=== PATIENT | female | born 1990 | race Caucasian/White ===

== ENCOUNTER 2019-07-20 10:24 | Emergency (ER) | payer MEDICAID, SELFPAY ==
[2019-07-20 10:40] VITALS: BP 105/66; PULSE 82; RESP 16; TEMP 36.7; O2SAT 100; BMI 18.8
--- NOTE | 2019-07-20 11:09 | DI.RAD.S_ITS ---
PROCEDURE: XR RIBS LT MIN 3V W CXR1V INDICATIONS: wresting last , now with left rib pain. TECHNIQUE: 2 views of the left ribs were acquired, along with a single view chest. COMPARISON: None. FINDINGS: Surgical changes and devices: None. Bones and chest wall: No displaced fractures or dislocations. No suspicious bony lesions. Overlying soft tissues appear unremarkable. Lungs and pleura: No pleural effusions or pneumothorax. Lungs appear clear. Mediastinum: Mediastinal contours appear normal. Heart size is normal. IMPRESSION: No displaced left rib fractures. Dictated by: Tavares Guevara M.D. on 07/20/2019 at 10:27 Approved by: Tavares Guevara M.D. on 07/20/2019 at 10:28
[2019-07-20] MEDS: LIDOCAINE PATCH 1 EACH ADH..PATCH TOP (11:49)
--- NOTE | 2019-07-20 12:02 | ED.URI ---
HPI - URI/Sore Throat <RADHA Feng - Last Filed: 07/20/19 14:29> General Chief Complaint: Upper Respiratory Symptoms Stated Complaint: Thinks cracked rib, pain on lft side and SOB Time Seen by Provider: 07/20/19 11:09 Source: patient Mode of arrival: ambulatory Limitations: no limitations History of Present Illness HPI Narrative: The patient is a 28-year-old female nonsmoker with history of depression and anxiety who presents with a chief complaint of left posterior pain. She states she was wrestling with her boyfriend in a playful manner, on . A she states that he pressed energy had sudden pain in her left posterior ribs. She states that now her sit take a deep breath or cough. She denies any fevers nausea vomiting or diarrhea. She states is difficult to take a deep breath, but denies any chest pain or shortness of breath. She has taken 400 mg of ibuprofen for the pain. Related Data Previous Rx's Medication Instructions Recorded sulfamethoxazole-trimethoprim 1 tab PO BID #12 tab 03/25/17 Allergies Allergy/AdvReac Type Severity Reaction Status Date / Time No Known Drug Allergies Allergy Verified 07/20/19 10:44 Review of Systems <RADHA Feng - Last Filed: 07/20/19 14:29> Review of Systems GENERAL: Denies chills, fatigue, malaise, fever, sweats. HEENT: Denies sinus pain, ear pain, sore throat, difficulty swallowing, dizziness. RESPIRATORY: See HPI CARDIOVASCULAR: Denies chest pain, palpitations, orthopnea, edema, GASTROINTESTINAL: Denies nausea, vomiting, abdominal pain, diarrhea, constipation, melena. : Denies dysuria, frequency, incontinence, hematuria, urinary retention. MUSCULOSKELETAL: denies weakness, joint pain, or bony pain SKIN: Denies rash, skin lesions, or other NEUROLOGIC: Denies weakness, headache, numbness, change in speech, confusion, seizures, incoordination. PSYCHIATRIC: No concerning psychosocial issues. 12 point review of systems is negative except for those stated above PFSH <RADHA Feng - Last Filed: 07/20/19 14:29> Medical History (Updated 07/20/19 @ 12:09 by RADHA Feng) Depression (Acute) Social History Smoking Status: Never smoker Social History Smoking Status: Never smoker Exam <RADHA Feng - Last Filed: 07/20/19 14:29> Narrative Exam Narrative: GENERAL: Thin female in no acute distress HEAD: Atraumatic. Normocephalic. No temporal or scalp tenderness. EYES: Pupils equal round and reactive. Extraocular motions intact. No scleral icterus. No injection or drainage. ENT: Nose without bleeding, purulent drainage or septal hematoma. Throat without erythema, tonsillar hypertrophy or exudate. Uvula midline. Airway patent. NECK: Trachea midline. No JVD or lymphadenopathy. Supple, nontender, no meningeal signs. CARDIOVASCULAR: Regular rate and rhythm RESPIRATORY: Clear to auscultation. Breath sounds equal bilaterally. No wheezes, rales, or rhonchi. No cough. No increased respiratory effort. Pain to palpation left posterior ribs. No pain on on lateral chest wall compression. Pain on anterior posterior chest wall compression. GASTROINTESTINAL: Abdomen soft, non-tender, nondistended. No hepato-splenomegaly, or palpable masses. No guarding. EXTREMITIES: No clubbing, cyanosis, or edema. No joint tenderness, effusion, or edema noted. BACK: Nontender without deformity or crepitance. No flank tenderness. NEURO: AOx3. SKIN: No rash, erythema, ecchymosis laceration abrasion or contusion noted on posterior chest wall Initial Vital Signs Initial Vital Signs: Vital Signs Temperature 98.0 F 07/20/19 10:40 Pulse Rate 82 07/20/19 10:40 Respiratory Rate 16 07/20/19 10:40 Blood Pressure 105/66 07/20/19 10:40 Pulse Oximetry 100 07/20/19 10:40 <Pat Aguilar DO - Last Filed: 07/21/19 07:23> Initial Vital Signs Initial Vital Signs: Vital Signs Temperature 98.0 F 07/20/19 10:40 Pulse Rate 82 07/20/19 10:40 Respiratory Rate 16 07/20/19 10:40 Blood Pressure 105/66 07/20/19 10:40 Pulse Oximetry 100 07/20/19 10:40 Course <RADHA Feng - Last Filed: 07/20/19 14:29> Orders Ordered: Discontinued Medications Lidocaine (Lidoderm) 1 each TOP NOW ONE Stop: 07/20/19 11:25 Last Admin: 07/20/19 11:49 Dose: 1 each Vital Signs - 8 hr 07/20/19 10:40 07/20/19 12:24 Temperature 98.0 F Pulse Rate 82 64 Respiratory Rate 16 14 Blood Pressure 105/66 Blood Pressure [Left Arm] 110/55 L Pulse Oximetry 100 100 <Pat Aguilar DO - Last Filed: 07/21/19 07:23> Orders Ordered: Discontinued Medications Lidocaine (Lidoderm) 1 each TOP NOW ONE Stop: 07/20/19 11:25 Last Admin: 07/20/19 11:49 Dose: 1 each Vital Signs - 8 hr 07/20/19 10:40 07/20/19 12:24 Temperature 98.0 F Pulse Rate 82 64 Respiratory Rate 16 14 Blood Pressure 105/66 Blood Pressure [Left Arm] 110/55 L Pulse Oximetry 100 100 MDM - URI/Sore Throat <RADHA Feng - Last Filed: 07/20/19 14:29> Imaging Data Ribs x-ray: Radiologist's impression: [place] [address] XRay Report Signed Patient: Isidra Tracy LMR#: [id number] : 1990Acct:[id number] Age/Sex: 28 / FDate of Service: 07/20/19 Loc: ED Accession Number: [id number] Procedure: XR ribs LT min 3V w CXR1V Ordering Provider: Pat Aguilar D.O. PROCEDURE: XR RIBS LT MIN 3V W CXR1V INDICATIONS: wresting last , now with left rib pain. TECHNIQUE: 2 views of the left ribs were acquired, along with a single view chest. COMPARISON: None. FINDINGS: Surgical changes and devices: None. Bones and chest wall: No displaced fractures or dislocations. No suspicious bony lesions. Overlying soft tissues appear unremarkable. Lungs and pleura: No pleural effusions or pneumothorax. Lungs appear clear. Mediastinum: Mediastinal contours appear normal. Heart size is normal. IMPRESSION: No displaced left rib fractures. Dictated by: Tavares Guevara M.D. on 07/20/2019 at 10:27 Approved by: Tavares Guevara M.D. on 07/20/2019 at 10:28 [facility] Narrative Medical decision making narrative: The patient is a 28-year-old female who presents with a chief complaint of left posterior rib pain. She has a negative x-ray. Her vital signs are stable, she is well oxygenated she is in no acute distress on exam. She is given a lidocaine patch to the emergency department. I offered her Toradol, which she declined. She was given incentive spirometry teaching due to a rib contusion. I discussed at length follow up with PCP. Discussed coming back to the ER for any acute concerns such as chest pain, severe shortness of breath etc. Patient has no questions or concerns upon discharge. I offered a prescription of lidocaine patch, and she declined. Discharge Plan Departure Patient Disposition: Home Clinical Impression: Contusion of rib on left side Qualifiers: Encounter type: initial encounter Qualified Code(s): S20.212A - Contusion of left front wall of thorax, initial encounter Discharge Date/Time: 07/20/19 12:29 Interventions: ED Discharge Assessment Last Done: 07/20/19 12:23 Instructions: How to Use an Incentive Spirometer, DI for Rib Contusion Activity Restrictions/Additional Instructions: Thank you for trusting us with your care today. Your x-ray today shows no fractures of your ribs. Please use the incentive spirometer to help prevent pneumonia. We have given you a lidocaine patch to help your pain. As discussed, 4% lidocaine patches are available [id number]. I also suggest continued use of ibuprofen and Tylenol. Please come back to the emergency department for any acute issues such as chest pain, shortness of breath, neurological changes, concern of heart attack or stroke. Prescriptions: No Action sulfamethoxazole-trimethoprim 800 MG/160 MG tablet 1 tab PO BID Qty: 12 RF: 0 Referrals: Grady Rowe MD [Primary Care Provider] - <Pat Aguilar DO - Last Filed: 07/21/19 07:23> Cosign ED Attending Nikkoature Attestation: I was immediately available in the department for consultation. Documentation has been reviewed. I agree with assessment and plan.
--- NOTE | 2019-07-20 12:09 | ED_ITS ---
HPI - URI/Sore Throat <RADHA Feng - Last Filed: 07/20/19 14:29> General Chief Complaint: Upper Respiratory Symptoms Stated Complaint: Thinks cracked rib, pain on lft side and SOB Time Seen by Provider: 07/20/19 11:09 Source: patient Mode of arrival: ambulatory Limitations: no limitations History of Present Illness HPI Narrative: The patient is a 28-year-old female nonsmoker with history of depression and anxiety who presents with a chief complaint of left posterior pain. She states she was wrestling with her boyfriend in a playful manner, on . A she states that he pressed energy had sudden pain in her left posterior ribs. She states that now her sit take a deep breath or cough. She denies any fevers nausea vomiting or diarrhea. She states is difficult to take a deep breath, but denies any chest pain or shortness of breath. She has taken 400 mg of ibuprofen for the pain. Related Data Previous Rx's Medication Instructions Recorded sulfamethoxazole-trimethoprim 1 tab PO BID #12 tab 03/25/17 Allergies Allergy/AdvReac Type Severity Reaction Status Date / Time No Known Drug Allergies Allergy Verified 07/20/19 10:44 Review of Systems <RADHA Feng - Last Filed: 07/20/19 14:29> Review of Systems GENERAL: Denies chills, fatigue, malaise, fever, sweats. HEENT: Denies sinus pain, ear pain, sore throat, difficulty swallowing, dizziness. RESPIRATORY: See HPI CARDIOVASCULAR: Denies chest pain, palpitations, orthopnea, edema, GASTROINTESTINAL: Denies nausea, vomiting, abdominal pain, diarrhea, constipation, melena. : Denies dysuria, frequency, incontinence, hematuria, urinary retention. MUSCULOSKELETAL: denies weakness, joint pain, or bony pain SKIN: Denies rash, skin lesions, or other NEUROLOGIC: Denies weakness, headache, numbness, change in speech, confusion, seizures, incoordination. PSYCHIATRIC: No concerning psychosocial issues. 12 point review of systems is negative except for those stated above PFSH <RADHA Feng - Last Filed: 07/20/19 14:29> Medical History (Updated 07/20/19 @ 12:09 by RADHA Feng) Depression (Acute) Social History Smoking Status: Never smoker Social History Smoking Status: Never smoker Exam <RADHA Feng - Last Filed: 07/20/19 14:29> Narrative Exam Narrative: GENERAL: Thin female in no acute distress HEAD: Atraumatic. Normocephalic. No temporal or scalp tenderness. EYES: Pupils equal round and reactive. Extraocular motions intact. No scleral icterus. No injection or drainage. ENT: Nose without bleeding, purulent drainage or septal hematoma. Throat without erythema, tonsillar hypertrophy or exudate. Uvula midline. Airway patent. NECK: Trachea midline. No JVD or lymphadenopathy. Supple, nontender, no meningeal signs. CARDIOVASCULAR: Regular rate and rhythm RESPIRATORY: Clear to auscultation. Breath sounds equal bilaterally. No wheezes, rales, or rhonchi. No cough. No increased respiratory effort. Pain to palpation left posterior ribs. No pain on on lateral chest wall compression. Pain on anterior posterior chest wall compression. GASTROINTESTINAL: Abdomen soft, non-tender, nondistended. No hepato- splenomegaly, or palpable masses. No guarding. EXTREMITIES: No clubbing, cyanosis, or edema. No joint tenderness, effusion, or edema noted. BACK: Nontender without deformity or crepitance. No flank tenderness. NEURO: AOx3. SKIN: No rash, erythema, ecchymosis laceration abrasion or contusion noted on posterior chest wall Initial Vital Signs Initial Vital Signs: Vital Signs Temperature 98.0 F 07/20/19 10:40 Pulse Rate 82 07/20/19 10:40 Respiratory Rate 16 07/20/19 10:40 Blood Pressure 105/66 07/20/19 10:40 Pulse Oximetry 100 07/20/19 10:40 <Pat Aguilar DO - Last Filed: 07/21/19 07:23> Initial Vital Signs Initial Vital Signs: Vital Signs Temperature 98.0 F 07/20/19 10:40 Pulse Rate 82 07/20/19 10:40 Respiratory Rate 16 07/20/19 10:40 Blood Pressure 105/66 07/20/19 10:40 Pulse Oximetry 100 07/20/19 10:40 Course <RADHA Fneg - Last Filed: 07/20/19 14:29> Orders Ordered: Discontinued Medications Lidocaine (Lidoderm) 1 each TOP NOW ONE Stop: 07/20/19 11:25 Last Admin: 07/20/19 11:49 Dose: 1 each Vital Signs - 8 hr 07/20/19 10:40 07/20/19 12:24 Temperature 98.0 F Pulse Rate 82 64 Respiratory Rate 16 14 Blood Pressure 105/66 Blood Pressure [Left Arm] 110/55 L Pulse Oximetry 100 100 <Pat Aguilar DO - Last Filed: 07/21/19 07:23> Orders Ordered: Discontinued Medications Lidocaine (Lidoderm) 1 each TOP NOW ONE Stop: 07/20/19 11:25 Last Admin: 07/20/19 11:49 Dose: 1 each Vital Signs - 8 hr 07/20/19 10:40 07/20/19 12:24 Temperature 98.0 F Pulse Rate 82 64 Respiratory Rate 16 14 Blood Pressure 105/66 Blood Pressure [Left Arm] 110/55 L Pulse Oximetry 100 100 MDM - URI/Sore Throat <RADHA Feng - Last Filed: 07/20/19 14:29> Imaging Data Ribs x-ray: Radiologist's impression: [place] [address] XRay Report Signed Patient: Isidra Tracy LMR#: [id number] : 1990Acct:[id number] Age/Sex: 28 / FDate of Service: 07/20/19 Loc: ED Accession Number: [id number] Procedure: XR ribs LT min 3V w CXR1V Ordering Provider: Pat Aguilar D.O. PROCEDURE: XR RIBS LT MIN 3V W CXR1V INDICATIONS: wresting last , now with left rib pain. TECHNIQUE: 2 views of the left ribs were acquired, along with a single view chest. COMPARISON: None. FINDINGS: Surgical changes and devices: None. Bones and chest wall: No displaced fractures or dislocations. No suspicious bony lesions. Overlying soft tissues appear unremarkable. Lungs and pleura: No pleural effusions or pneumothorax. Lungs appear clear. Mediastinum: Mediastinal contours appear normal. Heart size is normal. IMPRESSION: No displaced left rib fractures. Dictated by: Tavares Guevara M.D. on 07/20/2019 at 10:27 Approved by: Tavares Guevara M.D. on 07/20/2019 at 10:28 [facility] Narrative Medical decision making narrative: The patient is a 28-year-old female who presents with a chief complaint of left posterior rib pain. She has a negative x-ray. Her vital signs are stable, she is well oxygenated she is in no acute distress on exam. She is given a lidocaine patch to the emergency department. I offered her Toradol, which she declined. She was given incentive spirometry teaching due to a rib contusion. I discussed at length follow up with PCP. Discussed coming back to the ER for any acute concerns such as chest pain, severe shortness of breath etc. Patient has no questions or concerns upon discharge. I offered a prescription of lidocaine patch, and she declined. Discharge Plan Departure Patient Disposition: Home Clinical Impression: Contusion of rib on left side Qualifiers: Encounter type: initial encounter Qualified Code(s): S20.212A - Contusion of left front wall of thorax, initial encounter Discharge Date/Time: 07/20/19 12:29 Interventions: ED Discharge Assessment Last Done: 07/20/19 12:23 Instructions: How to Use an Incentive Spirometer, DI for Rib Contusion Activity Restrictions/Additional Instructions: Thank you for trusting us with your care today. Your x-ray today shows no fractures of your ribs. Please use the incentive spirometer to help prevent pneumonia. We have given you a lidocaine patch to help your pain. As discussed, 4% lidocaine patches are available [id number]. I also suggest continued use of ibuprofen and Tylenol. Please come back to the emergency department for any acute issues such as chest pain, shortness of breath, neurological changes, concern of heart attack or stroke. Prescriptions: No Action sulfamethoxazole-trimethoprim 800 MG/160 MG tablet 1 tab PO BID Qty: 12 RF: 0 Referrals: Grady Rowe MD [Primary Care Provider] - <Pat Aguilar DO - Last Filed: 07/21/19 07:23> Cosign ED Attending Nikkoature Attestation: I was immediately available in the department for consultation. Documentation has been reviewed. I agree with assessment and plan.
[2019-07-20 12:24] VITALS: BP 110/55; PULSE 64; RESP 14; O2SAT 100
== END 2019-07-20 12:29 | disposition home or self-care (01) ==
PROVIDERS: Emergency Provider Nurse Practitioner Family; PCP Family Medicine
DX: S20.212A Contusion of left front wall of thorax, initial encounter (principal)
CPT/HCPCS: 71101; 99282; 99283

== ENCOUNTER → 2021-05-25 14:53 | Outpatient (CLI) | payer OTHER, MEDICAID, SELFPAY ==
[2021-05-25 15:38] LABS: COVID19 -Nasal RAPID Negative (Negative)
== END ==
PROVIDERS: Visit Provider Physician Assistant
DX: Z20.822 Contact with and (suspected) exposure to COVID-19 (principal)
CPT/HCPCS: 87635

== ENCOUNTER → 2021-09-14 09:49 | Outpatient (CLI) | payer OTHER, MEDICAID, SELFPAY ==
[2021-09-14 10:17] LABS: COVID19 -Nasal RAPID Negative (Negative)
[2021-09-14 11:22] LABS: Influenza A - CEPHEID Flu A NEGATIVE (NEGATIVE); Influenza B - CEPHEID Flu B NEGATIVE (NEGATIVE)
== END ==
PROVIDERS: Referring Provider Nurse Practitioner Family; Visit Provider Nurse Practitioner Family
DX: Z20.822 Contact with and (suspected) exposure to COVID-19 (principal); R06.02 Shortness of breath; R11.10 Vomiting, unspecified; R50.9 Fever, unspecified
CPT/HCPCS: 87502; 87635

== ENCOUNTER → 2022-02-10 13:48 | Outpatient (CLI) | payer OTHER, MEDICAID, SELFPAY ==
[2022-02-10 15:01] LABS: Alanine Aminotransferase 20 IU/L (<35); Albumin 4.5 g/dL (3.5-5.0); Albumin Globulin Ratio 1.4 (1.0-2.8); Alkaline Phosphatase 71 U/L (38-126); Aspartate Aminotransferase 24 IU/L (14-36); Bilirubin Total 0.3 mg/dL (0.2-1.3); Blood Urea Nitrogen 15 mg/dL (7-17); Calcium 9.4 mg/dL (8.4-10.2); Carbon Dioxide 30 mmol/L (22-32); Chloride 103 mmol/L (98-107); Estimated Glomerular Filt Rate > 60.0 mL/min (>60); Globulin 3.2 g/dL (1.7-4.1); Glucose 71 mg/dL (70-100); HEMOLYSIS < 15 (0-50); Potassium 4.2 mmol/L (3.4-5.1); Sodium 141 mmol/L (137-145); Total Protein 7.7 g/dL (6.3-8.2)
[2022-02-10 16:40] LABS: TSH w/ Reflex to FT4 1.87 uIU/mL (0.47-4.68)
== END ==
PROVIDERS: PCP Family Medicine; Referring Provider Family Medicine; Visit Provider Family Medicine
DX: F41.8 Other specified anxiety disorders (principal); R79.89 Other specified abnormal findings of blood chemistry
CPT/HCPCS: 36415; 80053; 84443

== ENCOUNTER 2022-10-09 08:44 | Emergency (ER) | payer OTHER, MEDICAID, SELFPAY ==
--- NOTE | 2022-10-09 09:06 | ED_ITS ---
HPI - General Adult General Chief complaint: Abdominal Pain Stated complaint: apendix worries Time Seen by Provider: 10/09/22 08:53 History of Present Illness HPI narrative: Otherwise healthy 32-year-old woman presents with concerns for appendicitis. She was seen in urgent care on the , diagnosed with a urinary tract infection but the provider she saw was also concerned that she had some right lower quadrant tenderness and might be developing appendicitis. A year ago she had a ruptured ovarian cyst. She is not currently on control. She states that yesterday she had continued significant right lower quadrant tenderness after starting the Augmentin prescribed in urgent care. The dysuria and urine symptoms have completely resolved. She never did have fevers or flank pain. She woke up this morning and is pain-free but still somewhat concerned regarding the discussion around appendicitis. She describes no fevers, cough, chest pain, palpitations, headaches, vomiting or diarrhea. Related Data Home Medications Medication Instructions Recorded Confirmed bupropion HCl 150 mg tablet,12 hr 150 mg PO DAILY 01/27/22 01/27/22 sustained-release (Wellbutrin SR) Allergies Allergy/AdvReac Type Severity Reaction Status Date / Time No Known Drug Allergies Allergy Verified 10/09/22 09:12 Review of Systems Review of Systems Narrative: Remainder of complete review of systems is otherwise unremarkable except for that included in the HPI. Patient History Medical History (Updated 10/09/22 @ 10:12 by Maday Marti MD) Anemia (~2016) Anxiety (~2014) Asthma (~1988) Chicken pox (~1996) Depression GI bleeding (~2008) Ovarian cyst (~2019) Family History (Updated 12/16/21 @ 18:47 by Agnieszka Baker) Grandfather Parkinson's disease Grandmother Breast cancer Grandfather Prostate cancer Grandmother Breast cancer Social History Smoking Status: Never smoker Smoking Status: Never smoker Substance Use Type: does not use Exam Initial Vital Signs Initial Vital Signs: Vital Signs Temperature 98.6 F 10/09/22 09:09 Pulse Rate 84 10/09/22 09:09 Respiratory Rate 16 10/09/22 09:09 Blood Pressure 119/66 10/09/22 09:09 Pulse Oximetry 100 10/09/22 09:09 Oxygen Delivery Method 10/09/22 09:09 General: Healthy appearing, in no acute distress. Able to give a complete and coherent history. Well-nourished well-developed HEENT: Moist mucous membranes, normal sclera with reactive pupils, Neck: , supple Respiratory: Lungs are clear to auscultation, no wheezing no rales no rhonchi. Full and symmetrical air movement Cardiac: Regular rate and rhythm no murmurs no bruits Abdomen: Soft, very mild suprapubic to right lower quadrant tenderness without rebound or guarding, good bowel tones, no flank pain Skin: Warm and dry, no rashes Neurologic: Grossly neurologically intact with no obvious asymmetries or abnormalities Extremities: No trauma, well perfused Psych: Cooperative, appropriate insight and affect Course Orders Ordered: ED Orders 10/09/22 09:16 Complete Blood Count AUTO DIFF Stat Comprehensive Metabolic Panel Stat Vital Signs Vital signs: Vital Signs - 8 hr 10/09/22 09:09 Temperature 98.6 F Pulse Rate 84 Respiratory Rate 16 Blood Pressure 119/66 Pulse Oximetry 100 Oxygen Delivery Method Room Air Medical Decision Making Lab Data Result diagrams: 10/09/22 09:16 10/09/22 09:16 Labs: Lab Results 10/09/22 10/09/22 Range/Units 09:16 09:16 WBC 6.1 (4.5-11.0) X10^3/uL RBC 4.36 (4.0-5.2) X10^6/uL Hgb 12.9 (12.0-16.0) g/dL Hct 38.0 (36-46) % MCV 87.3 (80-100) fL MCH 29.5 (26-34) PG MCHC 33.8 (30-36) % RDW 12.7 (11.6-14.8) % Plt Count 378 (150-400) X10^3/uL Neut % (Auto) 62.3 (50-75) % Lymph % (Auto) 26.1 (25-40) % [place] % (Auto) 6.6 (3-14) % Eos % (Auto) 4.5 H (2-4) % Baso % (Auto) 0.5 (0-2) % Neut # (Auto) 3800 (3681-0909) /uL Lymph # (Auto) 1600 (0599-1709) /uL Dawson # (Auto) 400 (0-900) /uL Eos # (Auto) 300 (0-450) /uL Baso # (Auto) 0 (0-100) /uL Sodium 140 (137-145) mmol/L Potassium 3.6 (3.4-5.1) mmol/L Chloride 102 (98-107) mmol/L Carbon Dioxide 28 (22-32) mmol/L BUN 14 (7-17) mg/dL Creatinine 0.83 (0.52-1.04) mg/dL Estimated GFR > 60 (>60) mL/min BUN/Creatinine Ratio 16.9 (6-22) Glucose 82 (70-100) mg/dL Calcium 9.0 (8.4-10.2) mg/dL Total Bilirubin 0.3 (0.2-1.3) mg/dL AST 20 (14-36) IU/L ALT 18 (<35) IU/L Alkaline Phosphatase 60 (38-126) U/L Total Protein 7.8 (6.3-8.2) g/dL Albumin 4.3 (3.5-5.0) g/dL Globulin 3.5 (1.7-4.1) g/dL Albumin/Globulin Ratio 1.2 (1.0-2.8) Point of Care Testing Test Results Negative Urine Dip Bedside Urine Glucose Negative Bedside Urine Bilirubin - Negative Bedside Urine Ketone - Negative Urine Specific [place] 1.005 Bedside Urine Occult Blood - Negative Bedside Urine pH 6.5 Bedside Urine Protein - Negative Bedside Urine Urobilinogen - Negative Bedside Urine Nitrite - Negative Bedside Urine Leukocytes - Negative Esterase Point of care testing: Point of Care Testing Test Results Negative Urine Dip Bedside Urine Glucose Negative Bedside Urine Bilirubin - Negative Bedside Urine Ketone - Negative Urine Specific [place] 1.005 Bedside Urine Occult Blood - Negative Bedside Urine pH 6.5 Bedside Urine Protein - Negative Bedside Urine Urobilinogen - Negative Bedside Urine Nitrite - Negative Bedside Urine Leukocytes - Negative Esterase [facility] Narrative Medical decision making narrative: 32-year-old woman who had moderate urinary tract symptoms along with mild right lower quadrant tenderness for the past 48 hours has been on Augmentin now for 3 doses and is feeling significantly better this morning. Labs are reassuring. Clinical exam does not suggest a developing or worsening appendicitis. Possibility of a ruptured ovarian cyst is discussed with patient. If it has ruptured, it has completely resolved and she is showing no signs of intraperitoneal bleeding. At this point I recommended that she complete the entire 10 day course of amoxicillin with the presumption that she was developing an appendicitis and is being appropriately medically managed for such. Her urine has cleared. Findings reviewed, questions are answered and she is safe for home discharge Discharge Plan Departure Patient Disposition: Home Clinical Impression: UTI (urinary tract infection) Qualifiers: Urinary tract infection type: acute cystitis Hematuria presence: without hematuria Qualified Code(s): N30.00 - Acute cystitis without hematuria Abdominal right lower quadrant tenderness Qualifiers: Presence of rebound: absent Qualified Code(s): R10.813 - Right lower quadrant abdominal tenderness Instructions: DI for Appendicitis -- Adult Activity Restrictions/Additional Instructions: Thank you for coming in today Your lab work was very reassuring. There is no evidence of infection, kidney abnormalities or acute blood loss. Your clinical exam is equally reassuring. The fact that the right lower quadrant tenderness is essentially gone this morning is assigned that the Augmentin is helping. At this point I do not think that you have acute surgical appendicitis that needs additional workup or admission to the hospital. It may be that there was an early developing infection and the antibiotics chosen is entirely appropriate. Please make sure you complete course. Your urine is clear today, the antibiotics are working. If you find that you are getting worse or develop any new symptoms, please feel free to return to the emergency department for further evaluation. Prescriptions: No Action bupropion HCl [Wellbutrin SR] 150 mg tablet sustained-release 12 hr 150 mg PO DAILY Referrals: Raji Smalls MD [Primary Care Provider] -
[2022-10-09 09:09] VITALS: BP 119/66; PULSE 84; RESP 16; TEMP 37; O2SAT 100; BMI 19.5
[2022-10-09 09:27] LABS: Add Manual Diff / Slide Review NO; Basophils Absolute Auto 0 /uL (0-100); Basophils Percent Auto 0.5 % (0-2); Eosinophils Absolute Auto 300 /uL (0-450); Eosinophils Percent Auto 4.5 % (2-4); Hemoglobin 12.9 g/dL (12.0-16.0); Lymphocytes Absolute Auto 1600 /uL (1100-4500); Lymphocytes Percent Auto 26.1 % (25-40); Mean Corpuscular HGB Conc 33.8 % (30-36); Mean Corpuscular Hemoglobin 29.5 PG (26-34); Mean Corpuscular Volume 87.3 fL (80-100); Monocytes Absolute Auto 400 /uL (0-900); Monocytes Percent Auto 6.6 % (3-14); Neutrophils Absolute Auto 3800 /uL (1500-7000); Neutrophils Percent Auto 62.3 % (50-75); Platelet Count 378 X10^3/uL (150-400); Red Blood Cell Count 4.36 X10^6/uL (4.0-5.2); Red Cell Distribution Width 12.7 % (11.6-14.8); White Blood Cell Count 6.1 X10^3/uL (4.5-11.0)
[2022-10-09 09:36] LABS: Alanine Aminotransferase 18 IU/L (<35); Albumin 4.3 g/dL (3.5-5.0); Albumin Globulin Ratio 1.2 (1.0-2.8); Alkaline Phosphatase 60 U/L (38-126); Aspartate Aminotransferase 20 IU/L (14-36); BUN Creatinine Ratio 16.9 (6-22); Bilirubin Total 0.3 mg/dL (0.2-1.3); Blood Urea Nitrogen 14 mg/dL (7-17); Carbon Dioxide 28 mmol/L (22-32); Chloride 102 mmol/L (98-107); Estimated Glomerular Filt Rate > 60 mL/min (>60); Globulin 3.5 g/dL (1.7-4.1); Glucose 82 mg/dL (70-100); HEMOLYSIS < 15 (0-50); Potassium 3.6 mmol/L (3.4-5.1); Sodium 140 mmol/L (137-145); Total Protein 7.8 g/dL (6.3-8.2)
[2022-10-09 10:18] VITALS: BP 116/72; PULSE 76; RESP 12; O2SAT 98
== END 2022-10-09 10:18 | disposition home or self-care (01) ==
PROVIDERS: Emergency Provider Emergency Medicine; PCP Family Medicine
DX: N30.00 Acute cystitis without hematuria (principal); R10.813 Right lower quadrant abdominal tenderness
CPT/HCPCS: 36415; 80053; 81003; 81025; 85025; 99283

== ENCOUNTER → 2022-11-30 13:34 | Outpatient (CLI) | payer OTHER, MEDICAID, SELFPAY | PROVIDERS: PCP Family Medicine; Referring Provider Internal Medicine; Visit Provider Internal Medicine | DX: Z23 Encounter for immunization (principal) | CPT/HCPCS: 90471; 90686 ==

== ENCOUNTER → 2023-02-14 10:23 | Outpatient (CLI) | payer OTHER, MEDICAID, SELFPAY ==
[2023-02-14 11:46] LABS: Appearance Urine UA CLEAR; Bilirubin Urine UA NEGATIVE (NEGATIVE); Color Urine UA YELLOW; Glucose Urine UA NEGATIVE (Negative); Ketones Urine UA NEGATIVE (NEGATIVE); Leukocyte Esterase Urine UA NEGATIVE (NEGATIVE); Nitrite Urine UA NEGATIVE (Negative); Occult Blood Urine UA TRACE-INTACT (Negative); Protein Urine UA NEGATIVE (Negative); Urobilinogen Urine UA 0.2 E.U./dL (0.2)
[2023-02-14 11:50] LABS: Bacteria Urine None Seen; Culture Indicated Urine Cult Not Indicated; RBC Urine None Seen (0-5/HPF); Urine Comments Microscopic Normal; WBC Urine None Seen (0-5/HPF)
[2023-02-14 11:57] LABS: Alanine Aminotransferase 21 IU/L (<35); Albumin 4.1 g/dL (3.5-5.0); Albumin Globulin Ratio 1.3 (1.0-2.8); Alkaline Phosphatase 69 U/L (38-126); Aspartate Aminotransferase 21 IU/L (14-36); BUN Creatinine Ratio 19.3 (6-22); Bilirubin Total 0.4 mg/dL (0.2-1.3); Blood Urea Nitrogen 17 mg/dL (7-17); Calcium 8.5 mg/dL (8.4-10.2); Carbon Dioxide 31 mmol/L (22-32); Chloride 102 mmol/L (98-107); Estimated Glomerular Filt Rate > 60 mL/min (>60); Globulin 3.1 g/dL (1.7-4.1); Glucose 63 mg/dL (70-100); HEMOLYSIS < 15 (0-50); Potassium 4.4 mmol/L (3.4-5.1); Sodium 139 mmol/L (137-145); Total Protein 7.2 g/dL (6.3-8.2)
[2023-02-14 12:28] LABS: TSH w/ Reflex to FT4 1.47 uIU/mL (0.47-4.68)
== END ==
PROVIDERS: PCP Family Medicine; Referring Provider Family Medicine; Visit Provider Family Medicine
DX: F41.8 Other specified anxiety disorders (principal); F41.9 Anxiety disorder, unspecified; N39.41 Urge incontinence
CPT/HCPCS: 36415; 80053; 81001; 84443

== ENCOUNTER → 2023-06-01 09:43 | Outpatient (CLI) | payer OTHER, SELFPAY ==
[2023-06-01 10:22] LABS: COVID19 -Nasal RAPID Negative (Negative)
== END ==
PROVIDERS: PCP Family Medicine; Visit Provider Family Medicine
DX: Z20.822 Contact with and (suspected) exposure to COVID-19 (principal)
CPT/HCPCS: 87635

== ENCOUNTER → 2023-06-06 14:35 | Outpatient (CLI) | payer OTHER, SELFPAY ==
[2023-06-06 16:15] LABS: TSH w/ Reflex to FT4 1.82 uIU/mL (0.47-4.68)
[2023-06-09 12:47] LABS: Estrogen 191 pg/mL (.)
[2023-06-10 12:29] LABS: Anti Mullerian Hormone 1.92 ng/mL (.)
[2023-06-12 03:07] LABS: Percent Free Testosterone 1.29 % (0.50-2.80); Testosterone Free 0.13 ng/dL (0.10-0.85); Testosterone Total 10.1 ng/dL (10.0-55.0)
== END ==
PROVIDERS: PCP Family Medicine; Referring Provider Family Medicine; Visit Provider Family Medicine
DX: N83.209 Unspecified ovarian cyst, unspecified side (principal); F50.02 Anorexia nervosa, binge eating/purging type; Z31.41 Encounter for fertility testing
CPT/HCPCS: 36415; 82397; 82672; 83001; 84402; 84403; 84443

== ENCOUNTER → 2023-10-16 17:02 | Outpatient (CLI) | payer OTHER, SELFPAY ==
--- NOTE | 2023-10-16 17:03 | DI.US.S_ITS ---
PROCEDURE: US OB <= 14 WEEKS FETUS INDICATIONS: Dating and viability OUTSIDE/PRIOR DATING DATA: Last menstrual period (LMP): 08/16/2023. LMP-based estimated date of delivery (ZOE): 05/24/2024. First dating scan (date and location): 10/16/2023. Estimated date of delivery (ZOE) from first dating scan: 05/22/2024. TECHNIQUE: Real-time scanning was performed of the fetus and maternal pelvic organs, with image documentation. Transabdominal only. COMPARISON: None. FINDINGS: Embryo: [place]-rump length measuring 1.9 cm, gestational age 8 weeks 3 days Heart rate: 169 bpm. No perigestational hemorrhage. A yolk sac is seen. Maternal organs: Ovaries are within normal limits. Cervix measures 3.6 cm in length. IMPRESSION: 1. [place] living intrauterine at 8 weeks 3 days based on today's crown rump length. 2. No perigestational hemorrhage. We strive to produce accurate, complete, and clear reports of imaging services. To assist us in improving patient care, this report was composed using standard report templates and voice recognition software. Therefore, it may contain abnormal punctuation, insertions and/or omissions. Occasional wrong-word or sound-alike substitutions may occur. Though we review the report and make efforts to correct it, we do recommend that the report be read carefully in proper context to recognize any text inaccuracies. Dictated by: Chaparro Espitia M.D. on 10/17/2023 at 9:29 Approved by: Chaparro Espitia M.D. on 10/17/2023 at 9:32
== END ==
PROVIDERS: PCP Family Medicine; Referring Provider Obstetrics & Gynecology; Visit Provider Obstetrics & Gynecology
DX: Z34.81 Encounter for supervision of other normal pregnancy, first trimester (principal); Z3A.08 8 weeks gestation of pregnancy
CPT/HCPCS: 76801

== ENCOUNTER → 2023-11-15 14:28 | Outpatient (CLI) | payer OTHER, MEDICAID, SELFPAY ==
[2023-11-15 15:03] LABS: Add Manual Diff / Slide Review NO; Basophils Absolute Auto 0 /uL (0-100); Basophils Percent Auto 0.3 % (0-2); Eosinophils Absolute Auto 400 /uL (0-450); Eosinophils Percent Auto 4.9 % (2-4); Hematocrit 36.1 % (36-46); Hemoglobin 12.5 g/dL (12.0-16.0); Lymphocytes Absolute Auto 900 /uL (1100-4500); Lymphocytes Percent Auto 10.7 % (25-40); Mean Corpuscular HGB Conc 34.5 % (30-36); Mean Corpuscular Hemoglobin 29.9 PG (26-34); Mean Corpuscular Volume 86.7 fL (80-100); Monocytes Absolute Auto 900 /uL (0-900); Monocytes Percent Auto 11.1 % (3-14); Neutrophils Absolute Auto 6000 /uL (1500-7000); Platelet Count 343 X10^3/uL (150-400); Red Blood Cell Count 4.17 X10^6/uL (4.0-5.2); Red Cell Distribution Width 13.6 % (11.6-14.8); White Blood Cell Count 8.3 X10^3/uL (4.5-11.0)
[2023-11-15 16:15] LABS: Hepatitis B Surface Antigen NEGATIVE s/c (NEGATIVE); Rubella Antibody IgG 6.7 IU/mL (>15)
[2023-11-15 16:32] LABS: HIV 1 & 2 Ab/Ag 4th Gen Combo NEGATIVE (NEGATIVE); Hep C Virus Ab w/Reflex Quant NEGATIVE s/c (NEGATIVE)
[2023-11-15 22:49] LABS: Urine N gonorrhoeae NOT DETECTED
[2023-11-15 22:50] LABS: Urine Chlamydia NOT DETECTED
[2023-11-17 03:34] LABS: RPR Screen Non Reactive (Non Reactive)
[2023-11-17 07:36] LABS: Varicella IgG Antibody 701 index (Immune >165)
== END ==
PROVIDERS: PCP Family Medicine; Referring Provider Obstetrics & Gynecology; Visit Provider Obstetrics & Gynecology
DX: Z34.80 Encounter for supervision of other normal pregnancy, unspecified trimester (principal); Z34.81 Encounter for supervision of other normal pregnancy, first trimester; Z3A.13 13 weeks gestation of pregnancy
CPT/HCPCS: 36415; 80055; 86787; 86803; 86850; 86900; 86901; 87077; 87086; 87186; 87389; 87491; 87591

== ENCOUNTER 2023-11-17 22:06 | Emergency (ER) | payer OTHER, MEDICAID, SELFPAY ==
[2023-11-17 22:21] VITALS: BP 107/53; PULSE 109; RESP 18; TEMP 38.5; O2SAT 98; BMI 20.3
--- NOTE | 2023-11-17 22:28 | DI.RAD.S_ITS ---
PROCEDURE: XR CHEST 1V INDICATIONS: suspected sepsis TECHNIQUE: One view of the chest was acquired. COMPARISON: None. FINDINGS: Surgical changes and devices: None. Lungs and pleura: Lungs are clear. No pleural effusions or pneumothorax. Mediastinum: Mediastinal contours appear normal. Heart size is normal. Bones and chest wall: No suspicious bony lesions. Overlying soft tissues appear unremarkable. IMPRESSION: No acute pulmonary process. Dictated by: Janette Hook M.D. on 11/17/2023 at 23:20 Approved by: Janette Hook M.D. on 11/17/2023 at 23:20
[2023-11-17 22:53] LABS: INR 1.1 (0.9-1.3); Prothrombin Time 12.9 SECONDS (9.4-12.5)
[2023-11-17 22:55] LABS: Hematocrit 36.6 % (36-46); Hemoglobin 12.4 g/dL (12.0-16.0); Mean Corpuscular Volume 85.3 fL (80-100); Platelet Count 312 X10^3/uL (150-400); Red Blood Cell Count 4.29 X10^6/uL (4.0-5.2); Red Cell Distribution Width 13.5 % (11.6-14.8); White Blood Cell Count 27.4 X10^3/uL (4.5-11.0)
[2023-11-17 22:56] LABS: Add Manual Diff / Slide Review YES; PTT Partial Thromboplastin Tim 27 SECONDS (25.1-36.5)
[2023-11-17 23:01] LABS: Alanine Aminotransferase 16 IU/L (<35); Albumin 3.7 g/dL (3.5-5.0); Albumin Globulin Ratio 1.2 (1.0-2.8); Alkaline Phosphatase 48 U/L (38-126); Aspartate Aminotransferase 21 IU/L (14-36); BUN Creatinine Ratio 10.5 (6-22); Bilirubin Total 0.7 mg/dL (0.2-1.3); Blood Urea Nitrogen 9 mg/dL (7-17); Calcium 8.8 mg/dL (8.4-10.2); Carbon Dioxide 21 mmol/L (22-32); Chloride 99 mmol/L (98-107); Estimated Glomerular Filt Rate > 60 mL/min (>60); Globulin 3.2 g/dL (1.7-4.1); Glucose 138 mg/dL (70-100); HEMOLYSIS < 15 (0-50); Lipase 85 U/L (23-300); Potassium 3.5 mmol/L (3.4-5.1); Sodium 129 mmol/L (137-145); Total Protein 6.9 g/dL (6.3-8.2)
[2023-11-17 23:06] LABS: Lactate (Lactic Acid) 1.6 mmol/L (0.7-2.1)
[2023-11-17 23:17] LABS: Procalcitonin 0.34 ng/mL (<0.5)
[2023-11-17 23:18] LABS: Neutrophils Absolute Manual 24934 /uL (3000-5900); RBC Morphology Normal Morphology; Total Cells Counted 100
[2023-11-17] MEDS: SODIUM CHLORIDE 0.9% 1,000 ML 1000 ML IV (23:34)
[2023-11-18 00:29] LABS: Bacteria Urine Many (>30); Culture Indicated Urine Specimen Cultured; RBC Urine 1-5/HPF (0-5/HPF); Squamous Epithelial Cell Urine None Seen (0-5/HPF); WBC Urine 30-100/HPF (0-5/HPF)
--- NOTE | 2023-11-18 02:21 | ED_ITS ---
HPI - Fever General Chief Complaint: Fever Stated Complaint: high fever body aches 2nd trimester of Time Seen by Provider: 11/18/23 02:06 Source: patient Mode of arrival: Ambulatory History of Present Illness HPI Narrative: This is a 33-year-old female who otherwise healthy at 13 weeks. She is had 24 hours of fevers myalgias fatigue and cough. She is had nausea without vomiting. She is not had diarrhea she is not having abdominal pain denies dysuria had bilateral flank pain. She does have a history of a urinary tract infection in the past. Not have any cramping or vaginal bleeding. Says that she had a negative COVID test at an urgent care yesterday. She is not short of breath. Related Data Home Medications Medication Instructions Recorded Confirmed Lactobacillus rhamnosus GG 10 1 cap PO DAILY 09/29/23 11/15/23 billion cell capsule (Culturelle) vitamin-ferrous sulfate tab PO 09/29/23 11/15/23 27 mg iron-folic acid 0.8 mg tablet Previous Rx's Medication Instructions Recorded albuterol sulfate 90 mcg/actuation 2 puff inhalation Q6H PRN 02/06/23 aerosol inhaler shortness of breath or wheezing #6.7 grams nitrofurantoin 100 mg PO Q12H 7 days #14 caps 11/17/23 monohydrate/macrocrystals 100 mg capsule (Macrobid) cefdinir 300 mg capsule 300 mg PO BID 10 days #20 caps 11/18/23 Allergies Allergy/AdvReac Type Severity Reaction Status Date / Time No Known Drug Allergies Allergy Verified 11/15/23 15:54 Patient History Medical History (Updated 11/18/23 @ 04:20 by Primo Lang MD) Migraine Asthma (~1988) Anxiety (~2014) Chicken pox (~1996) Anemia (~2016) Ovarian cyst (~2019) GI bleeding (~2008) Depression Surgical History (Updated 09/29/23 @ 09:40 by Silva Cabrera RN) History of hand surgery Family History (Updated 09/29/23 @ 09:43 by Silva Cabrera RN) Grandfather Parkinson's disease Alcoholism Grandmother Breast cancer Grandfather Prostate cancer Alzheimers disease Grandmother Breast cancer Mother A-fib Uncle Colon cancer Alcoholism Aunt Breast cancer Social History marital status: unmarried,single number of children: 0 household members: friend(s) lives independently: Yes caregiver/support person: No housing: house pets and animals: Yes (cat) education level: college (associate's degree) occupational status: student 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: No travel history: over 6 months ago seatbelt use: always water heater temp set < 120 deg: Yes working smoke detector in home: Yes fire extinguisher in home: No carbon monox detector in home: Yes firearms in home: No do you feel safe at home: Yes Smoking Status: Never smoker second hand exposure: No alcohol intake: former (occasionally when not ) substance use type: does not use well-balanced diet: rarely or never daily servings fruits/ve-1 caffeine: Yes (AM cup coffee) Type(s) of exercise: weight lifting and resistance training frequency: 1-2 times per week Smoking Status: Never smoker Substance Use Type: does not use Exam Initial Vital Signs Initial Vital Signs: Vital Signs Temperature 101.3 F H 11/17/23 22:21 Pulse Rate 109 H 11/17/23 22:21 Respiratory Rate 18 11/17/23 22:21 Blood Pressure 107/53 L 11/17/23 22:21 Pulse Oximetry 98 11/17/23 22:21 Oxygen Delivery Method Room Air 11/17/23 22:21 Const General: cooperative, healthy appearing, No acute distress and ill appearing [facility] Head: normocephalic and atraumatic Neck Neck: no meningeal signs, lymphadenopathy (Has some swollen anterior lymph nodes) and No JVD Resp Effort & Inspection: normal respiratory effort and cough Auscultation: clear to auscultation bilaterally Cardio Rate: tachycardic Rhythm: regular rhythm Heart Sounds: S1 normal, S2 normal and no murmurs GI Palpation: soft and No tender Auscultation: normal bowel sounds Back/Spine/Pelvis Other: No CVAT Skin Rashes: no rashes Neuro General: patient alert, patient awake, patient oriented x3 and moves all extremities Course Orders Ordered: ED Orders 11/17/23 22:28 XR chest 1V Stat RT Consult Eval and Treat NOW 11/17/23 22:35 Complete Blood Count AUTO DIFF Stat Comprehensive Metabolic Panel Stat Lactate (Lactic Acid) Stat Lipase Stat PTT Partial Thromboplastin John Stat Procalcitonin Stat Prothrombin Time INR Stat 11/17/23 22:38 EKG-12 Lead Routine 11/17/23 23:00 Respiratory Panel (Film Array) Stat 11/17/23 23:13 Blood Culture Stat 11/17/23 23:40 Urine Culture Stat 11/18/23 00:08 Urine Microscopic Stat 11/18/23 02:15 Acetaminophen Stat Discontinued Medications Acetaminophen (Acetaminophen 325 Mg Tablet) 650 mg PO NOW ONE Stop: 11/18/23 02:16 Last Admin: 11/18/23 02:43 Dose: 650 mg Documented By: NENO Sodium Chloride (Normal Saline 0.9%) 1,000 mls @ 1,000 mls/hr IV BOLUS ONE Stop: 11/17/23 23:27 Last Infusion: 11/18/23 02:48 Dose: Infused Documented By: Admin: 11/17/23 23:34 Dose: 1,000 mls/hr Documented By: LYNDON Ceftriaxone Sodium 2,000 mg/ (Sodium Chloride) 100 mls @ 200 mls/hr IV NOW ONE Stop: 11/18/23 02:50 Last Infusion: 11/18/23 03:46 Dose: Infused Documented By: Admin: 11/18/23 03:05 Dose: 200 mls/hr Documented By: NENO Ondansetron HCl (Ondansetron 4 Mg/2 Ml Inj) 4 mg IV NOW PRN PRN Reason: Nausea And Vomiting Ondansetron HCl (Ondansetron 4 Mg Odt) 4 mg SL NOW PRN PRN Reason: Nausea And Vomiting Vital Signs Vital signs: Vital Signs - 8 hr 11/17/23 22:21 11/18/23 02:47 11/18/23 03:46 Temperature 101.3 F H 98.8 F 98.8 F Pulse Rate 109 H 105 H Respiratory Rate 18 18 Blood Pressure 107/53 L 110/63 Pulse Oximetry 98 96 Oxygen Delivery Method Room Air 11/18/23 04:26 Temperature Pulse Rate 96 H Respiratory Rate 18 Blood Pressure 112/74 Pulse Oximetry 99 Oxygen Delivery Method MDM - Fever Lab Data Lab results narrative: CBC shows a leukocytosis of 27,000. Urinalysis shows evidence of infection. Respiratory panel was positive for enterovirus. CMP is reassuring. Lactic is normal 11/17/23 22:35 11/17/23 22:35 Labs: Lab Results 11/17/23 11/17/23 11/18/23 Range/Units 22:35 23:40 02:53 WBC 27.4 H (4.5-11.0) X10^3/uL RBC 4.29 (4.0-5.2) X10^6/uL Hgb 12.4 (12.0-16.0) g/dL Hct 36.6 (36-46) % MCV 85.3 (80-100) fL MCH 29.0 (26-34) PG MCHC 34.0 (30-36) % RDW 13.5 (11.6-14.8) % Plt Count 312 (150-400) X10^3/uL Neut % (Auto) Not Reportable Lymph % (Auto) Not Reportable [place] % (Auto) Not Reportable Eos % (Auto) Not Reportable Baso % (Auto) Not Reportable Lymph # (Auto) Not Reportable [place] # (Auto) Not Reportable Baso # (Auto) Not Reportable Total Counted 100 Seg Neutrophils % 82.0 H (38-70) % Band Neutrophils % 9.0 H (3-7) % Lymphocytes % (Manual) 5.0 L (25-45) % Monocytes % (Manual) 4.0 (2-11) % Neutrophils # (Manual) 55796 H (6263-9323) /uL RBC Morphology Normal morphology PT 12.9 H (9.4-12.5) SECONDS INR 1.1 (0.9-1.3) APTT 27 (25.1-36.5) SECONDS Sodium 129 L (137-145) mmol/L Potassium 3.5 (3.4-5.1) mmol/L Chloride 99 (98-107) mmol/L Carbon Dioxide 21 L (22-32) mmol/L BUN 9 (7-17) mg/dL Creatinine 0.86 (0.52-1.04) mg/dL Estimated GFR > 60 (>60) mL/min BUN/Creatinine Ratio 10.5 (6-22) Glucose 138 H (70-100) mg/dL Lactate 1.6 (0.7-2.1) mmol/L Calcium 8.8 (8.4-10.2) mg/dL Total Bilirubin 0.7 (0.2-1.3) mg/dL AST 21 (14-36) IU/L ALT 16 (<35) IU/L Alkaline Phosphatase 48 (38-126) U/L Total Protein 6.9 (6.3-8.2) g/dL Albumin 3.7 (3.5-5.0) g/dL Globulin 3.2 (1.7-4.1) g/dL Albumin/Globulin Ratio 1.2 (1.0-2.8) Lipase 85 (23-300) U/L Procalcitonin 0.34 (<0.5) ng/mL Urine RBC 1-5/hpf (0-5/HPF) Urine WBC 30-100/hpf H (0-5/HPF) Ur Squamous Epith Cells None seen (0-5/HPF) Urine Bacteria Many (>30) H (None) Ur Culture Indicated? Specimen cultured Acetaminophen < 10 (10-30) ug/mL Chlamy pneumoniae PCR Not detected (Not Detect) Adenovirus (PCR) Not detected (Not Detect) B.parapertussis DNA PCR Not detected (Not Detecte) Coronavirus OC43 (PCR) Not detected (Not Detect) Coronavirus HKU1 (PCR) Not detected (Not Detect) Coronavirus 229E (PCR) Not detected (Not Detect) SARS-CoV-2 (PCR) Not detected (Not Detecte) Coronavirus NL63 (PCR) Not detected (Not Detect) Human Metapneumovir PCR Not detected (Not Detect) Influenza Type A (PCR) Not detected (Not Detect) Influenza Type B (PCR) Not detected (Not Detect) M. pneumoniae (PCR) Not detected (Not Detect) Parainfluenza 1 (PCR) Not detected (Not Detect) Parainfluenza 2 (PCR) Not detected (Not Detect) Parainfluenza 3 (PCR) Not detected (Not Detect) Parainfluenza 4 (PCR) Not detected (Not Detect) RSV (PCR) Not detected (Not Detect) Entero/Rhino (PCR) Detected H (Not Detect) Urine Dip Bedside Urine Glucose Negative Bedside Urine Bilirubin - Negative Bedside Urine Ketone +/- 5 Urine Specific [place] 1.010 Bedside Urine Occult Blood ++ Bedside Urine pH 7.0 Bedside Urine Protein +/- 15 Bedside Urine Urobilinogen - Negative Bedside Urine Nitrite + Positive Bedside Urine Leukocytes ++ 125 Esterase Imaging Data Chest x-ray: My Impression: My preliminary interpretation is no acute disease Radiologist's Impression: Per Radiology there were no acute findings MDM Narrative Medical decision making narrative: 33-year-old female previously healthy presenting with febrile illness. She had respiratory symptoms but is not in respiratory failure. She is not hypoxic she is not hypotensive. Patient has a significant leukocytosis her abdomen is benign I do not think she has a surgical problem in her abdomen. She does have evidence of infection on her urinalysis. She was endorsing urinary symptoms earlier, she was given ceftriaxone in the emergency department and discharged on antibiotics. Indications for return to the emergency department are reviewed. Discharge Plan Departure Patient Disposition: Home Clinical Impression: Pyelonephritis URI (upper respiratory infection) Qualifiers: URI type: unspecified viral URI Qualified Code(s): J06.9 - Acute upper respiratory infection, unspecified Activity Restrictions/Additional Instructions: Today we are treating you for a kidney infection. 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 Use ibuprofen and/or acetaminophen as needed for fevers and body aches. Rest and get adequate fluids. If you are getting worse having increasing shortness of breath uncontrolled vomiting increasing weakness or other acute symptoms recheck in the emergency department. Follow up soon with your primary care provider. Prescriptions: New cefdinir 300 mg capsule 300 mg PO BID 10 Days Qty: 20 0RF No Action albuterol sulfate 90 mcg/actuation HFA aerosol inhaler 2 puff inhalation Q6H PRN (Reason: shortness of breath or wheezing) Qty: 6.7 3RF nitrofurantoin monohyd/m-cryst [Macrobid] 100 mg capsule 100 mg PO Q12H 7 Days Qty: 14 0RF Rx Instructions: must administer with a meal/food Culturelle 10 billion cell capsule 1 cap PO DAILY vit-ferrous sulfat-FA 27 mg iron- 0.8 mg tablet PO Referrals: Raji Smalls MD [Primary Care Provider] - Stand Alone Forms: Patient Portal/API
[2023-11-18] MEDS: ACETAMINOPHEN 325 MG TABLET 650 MG PO (02:43)
[2023-11-18 02:47] VITALS: BP 110/63; PULSE 105; RESP 18; TEMP 37.1; O2SAT 96
[2023-11-18] MEDS: cefTRIAXone 2,000 MG in SODIUM CHLORIDE 0.9% 100 ML 200 MG IV (03:05)
[2023-11-18 03:20] LABS: Acetaminophen < 10 ug/mL (10-30)
[2023-11-18 03:46] VITALS: TEMP 37.1
[2023-11-18 03:53] LABS: Adenovirus Not Detected (Not Detect); B. parapertussis Not Detected (Not Detecte); Bordetella pertussis Not Detected (Not Detect); Chlamydophila pneumoniae Not Detected (Not Detect); Coronavirus 229E Not Detected (Not Detect); Coronavirus HKU1 Not Detected (Not Detect); Coronavirus NL 63 Not Detected (Not Detect); Coronavirus OC43 Not Detected (Not Detect); Human Metapneumovirus Not Detected (Not Detect); Human Rhinovirus/Enterovirus Detected (Not Detect); Influenza A Not Detected (Not Detect); Influenza B Not Detected (Not Detect); Mycoplasma pneumoniae Not Detected (Not Detect); Parainfluenza Virus 1 Not Detected (Not Detect); Parainfluenza Virus 2 Not Detected (Not Detect); Parainfluenza Virus 3 Not Detected (Not Detect); Parainfluenza Virus 4 Not Detected (Not Detect); Respiratory Syncytial Virus Not Detected (Not Detect); SARS- CoV-2 Not Detected (Not Detecte)
[2023-11-18 04:26] VITALS: BP 112/74; PULSE 96; RESP 18; O2SAT 99
== END 2023-11-18 04:29 | disposition home or self-care (01) ==
PROVIDERS: Emergency Provider Emergency Medicine; PCP Family Medicine
DX: O98.511 Other viral diseases complicating pregnancy, first trimester (principal); J06.9 Acute upper respiratory infection, unspecified; B34.8 Other viral infections of unspecified site; N12 Tubulo-interstitial nephritis, not specified as acute or chronic; Z3A.13 13 weeks gestation of pregnancy; Z20.822 Contact with and (suspected) exposure to COVID-19
CPT/HCPCS: 36415; 71045; 80053; 80329; 81003; 81015; 83605; 83690; 84145; 85007; 85025; 85610; 85730; 87040; 87077; 87086; 87186; 87633; 93005; 93010; 96361; 96365; 99284; G0480; J0696

== ENCOUNTER → 2023-11-30 10:14 | Outpatient (CLI) | payer OTHER, MEDICAID, SELFPAY ==
[2023-11-30 10:50] LABS: Appearance Urine UA SL CLOUDY; Bilirubin Urine UA NEGATIVE (NEGATIVE); Color Urine UA YELLOW; Glucose Urine UA NEGATIVE (Negative); Ketones Urine UA NEGATIVE (NEGATIVE); Leukocyte Esterase Urine UA NEGATIVE (NEGATIVE); Nitrite Urine UA NEGATIVE (Negative); Occult Blood Urine UA NEGATIVE (Negative); Protein Urine UA NEGATIVE (Negative); Urobilinogen Urine UA 0.2 E.U./dL (0.2)
[2023-11-30 10:51] LABS: Add Manual Diff / Slide Review NO; Basophils Absolute Auto 100 /uL (0-100); Basophils Percent Auto 0.6 % (0-2); Eosinophils Absolute Auto 400 /uL (0-450); Eosinophils Percent Auto 3.5 % (2-4); Hematocrit 35.3 % (36-46); Hemoglobin 12.1 g/dL (12.0-16.0); Lymphocytes Absolute Auto 1400 /uL (1100-4500); Lymphocytes Percent Auto 14.1 % (25-40); Mean Corpuscular HGB Conc 34.4 % (30-36); Mean Corpuscular Hemoglobin 29.6 PG (26-34); Mean Corpuscular Volume 85.9 fL (80-100); Monocytes Absolute Auto 500 /uL (0-900); Monocytes Percent Auto 4.6 % (3-14); Neutrophils Absolute Auto 7900 /uL (1500-7000); Neutrophils Percent Auto 77.2 % (50-75); Platelet Count 439 X10^3/uL (150-400); Red Blood Cell Count 4.11 X10^6/uL (4.0-5.2); Red Cell Distribution Width 13.5 % (11.6-14.8); White Blood Cell Count 10.2 X10^3/uL (4.5-11.0)
[2023-11-30 11:10] LABS: Bacteria Urine Moderate (10-30); Culture Indicated Urine Cult Not Indicated; RBC Urine None Seen (0-5/HPF); Squamous Epithelial Cell Urine 10-30 /HPF (0-5/HPF); WBC Urine 1-5/HPF (0-5/HPF)
[2023-11-30 11:38] LABS: Alanine Aminotransferase 17 IU/L (<35); Albumin 3.5 g/dL (3.5-5.0); Albumin Globulin Ratio 1.2 (1.0-2.8); Alkaline Phosphatase 56 U/L (38-126); BUN Creatinine Ratio 17.9 (6-22); Bilirubin Total 0.4 mg/dL (0.2-1.3); Blood Urea Nitrogen 10 mg/dL (7-17); Calcium 9.3 mg/dL (8.4-10.2); Carbon Dioxide 27 mmol/L (22-32); Chloride 98 mmol/L (98-107); Estimated Glomerular Filt Rate > 60 mL/min (>60); Glucose 88 mg/dL (70-100); HEMOLYSIS < 15 (0-50); Potassium 4.1 mmol/L (3.4-5.1); Sodium 132 mmol/L (137-145); Total Protein 6.5 g/dL (6.3-8.2)
[2023-12-01 15:12] LABS: Aspartate Aminotransferase 21 IU/L (14-36)
== END ==
PROVIDERS: PCP Family Medicine; Referring Provider Family Medicine; Visit Provider Family Medicine
DX: O09.899 Supervision of other high risk pregnancies, unspecified trimester (principal); D64.9 Anemia, unspecified; F41.9 Anxiety disorder, unspecified; N12 Tubulo-interstitial nephritis, not specified as acute or chronic; Z28.39 Other underimmunization status
CPT/HCPCS: 36415; 80053; 81001; 85025

== ENCOUNTER → 2024-04-30 14:43 | Outpatient (CLI) | payer OTHER, SELFPAY ==
[2024-05-01 15:22] LABS: Strep Grp B PCR NEG for Grp B Strep
== END ==
PROVIDERS: PCP Family Medicine; Visit Provider Obstetrics & Gynecology
DX: Z34.83 Encounter for supervision of other normal pregnancy, third trimester (principal)
CPT/HCPCS: 87653

== ENCOUNTER 2024-05-28 09:03 | Observation (INO) | payer OTHER, SELFPAY | END 2024-05-28 10:04 | disposition home or self-care (01) | PROVIDERS: Admitting Provider Obstetrics & Gynecology; PCP Family Medicine; Referring Provider Obstetrics & Gynecology; Visit Provider Obstetrics & Gynecology | DX: O48.0 Post-term pregnancy (principal); O09.523 Supervision of elderly multigravida, third trimester; O47.1 False labor at or after 37 completed weeks of gestation; Z3A.40 40 weeks gestation of pregnancy | CPT/HCPCS: 59025; 76815; G0378; G0379 ==

== ENCOUNTER 2024-05-29 07:01 | Inpatient (IN) | payer OTHER, SELFPAY ==
[2024-05-29 07:30] VITALS: BP 142/63
[2024-05-29 07:52] LABS: Add Manual Diff / Slide Review NO; Basophils Absolute Auto 100 /uL (0-100); Basophils Percent Auto 0.6 % (0-2); Eosinophils Absolute Auto 200 /uL (0-450); Eosinophils Percent Auto 2.1 % (2-4); Hematocrit 40.5 % (36-46); Hemoglobin 13.7 g/dL (12.0-16.0); Lymphocytes Absolute Auto 2200 /uL (1100-4500); Lymphocytes Percent Auto 19.4 % (25-40); Mean Corpuscular HGB Conc 33.7 % (30-36); Mean Corpuscular Hemoglobin 29.6 PG (26-34); Monocytes Absolute Auto 1000 /uL (0-900); Monocytes Percent Auto 8.8 % (3-14); Neutrophils Absolute Auto 7800 /uL (1500-7000); Neutrophils Percent Auto 69.1 % (50-75); Platelet Count 347 X10^3/uL (150-400); Red Blood Cell Count 4.61 X10^6/uL (4.0-5.2); Red Cell Distribution Width 13.5 % (11.6-14.8); White Blood Cell Count 11.2 X10^3/uL (4.5-11.0)
[2024-05-29] MEDS: LACTATED RINGERS 1,000 ML 100 ML IV ×2 (07:52→09:50)
--- NOTE | 2024-05-29 08:56 | PM.AN.REGBLK ---
Regional Block Pre-procedure Procedure: Continuous Lumbar Epidural for L&D Attending OB provider: Noe Bassett PMH/ROS narrative: w/ PMH of asthma and anxiety/depression presents in active labor requesting DANK. PSH/Anesthesia history narrative: See pre-anesthesia evaluation form Exam narrative: See pre-anesthesia evaluation form ASA Class: II Labs: Hct 40.5 % (36-46) 05/29/24 07:15 Plt Count 347 X10^3/uL (150-400) 05/29/24 07:15 Medications: Current Medications Generic Name Dose Route Start Last Admin Trade Name Freq PRN Reason Stop Dose Admin Carboprost Tromethamine 250 mcg 05/29/24 07:25 Carboprost 250 Mcg/Ml Ampul IM Q90M PRN Bleeding Diphenhydramine HCl 25 mg 05/29/24 08:53 Diphenhydramine 50 Mg/Ml Vial IV 05/30/24 08:54 Q3HR PRN PRURITUS Fentanyl 50 mcg 05/29/24 07:26 Fentanyl 100 Mcg/2 Ml Inj IV Q1H PRN Pain, Moderate (4-6) Oxytocin/Lactated Ringer's 30 unit in 500 mls @ 200 mls/hr 05/29/24 07:25 Oxytocin Premix IV CONT PRN Bleeding Protocol Tranexamic Acid 1,000 mg/ 100 mls @ 600 mls/hr 05/29/24 07:25 Sodium Chloride IV NOW PRN Bleeding Lactated Ringer's 1,000 mls @ 100 mls/hr 05/29/24 07:30 Lactated Ringers IV CONT LOUISE Sodium Chloride 1,000 mls @ 100 mls/hr 05/29/24 09:00 Normal Saline 0.9% IV 05/30/24 08:53 CONT LOUISE Lidocaine HCl 20 ml 05/29/24 07:25 Lidocaine 1% 20 Ml INJ INTRA-OP PRN Post Delivery Methylergonovine Maleate 0.2 mg 05/29/24 07:25 Methylergonovine 0.2 Mg Tablet PO Q6HR PRN Heavy Bleeding Methylergonovine Maleate 0.2 mg 05/29/24 07:25 Methylergonovine 0.2 Mg/Ml Vial IM NOW PRN Bleeding Misoprostol 800 mcg 05/29/24 07:25 Misoprostol 200 Mcg Tablet TX NOW PRN Bleeding Misoprostol 400 mcg 05/29/24 07:25 Misoprostol 200 Mcg Tablet SL NOW PRN Bleeding Naloxone HCl 0.2 mg 05/29/24 07:25 Naloxone 0.4 Mg/Ml Vial IV Q2MIN PRN Opiate Reversal Naloxone HCl 0.4 mg 05/29/24 08:53 Naloxone 0.4 Mg/Ml Vial IV Q2MIN PRN Opiate Reversal Oxytocin 10 unit 05/29/24 07:25 Oxytocin 10 Unit/Ml Vial IM NOW PRN Bleeding Allergies: Allergies Allergy/AdvReac Type Severity Reaction Status Date / Time No Known Drug Allergies Allergy Verified 05/28/24 08:22 Procedure Insertion date: 05/29/24 Insertion time: 08:31 Prep/Local: 1% lidocaine (3mL, and chlorhexadine to skin) Interspace: L3/L4 Patient position: sitting Needle: 18 gauge Rhonda Loss of resistance with: saline DEBORAH at (cm): 5 Catheter placed at SKIN (cm): 12 Catheter in SPACE (cm): 7 Insertion: No CSF, No Blood, No Paresthesia with insertion, No Paresthesia with injection and No Test dose reaction Initial Medications TEST DOSE time: 08:32 TEST DOSE: 1.5% lidocaine with epinephrine 1:200k (mL): 3 BOLUS DOSE time: 08:30 BOLUS DOSE med: other (0.75mL of 0.5% bupivacaine intrathecally via CSE prior to threading of epidural catheter) Infusion INFUSION: 0.125% bupivacaine and with fentanyl 2 mcg/mL Initial rate (mL/hr): 8 Subsequent interventions: 1100 Infusate was noted to be leaking around filter device, called for response. Inspected catheter. Threads around filter appeared well aligned to tubing. Removed filter device and closed system back up. No further leaking noticed. Clinician bolus of 10mL infusate administered, as a considerable amount of the basal rate had leaked on to sheets. Pt is comfortable, feeling some pressure and beginning to push. -AB Post-procedure Anesthesia date START: 05/29/24 Anesthesia time START: 08:21 Anesthesia date END: 05/29/24 Anesthesia time END: 12:49 Post-procedure Anesthesia Assessment: Yes CV function: HR/BP stable, Yes Resp function: RR/sat/airway adequate, Yes Post-op hydration adequate, Yes Pain control adequate, Yes Nausea & vomiting absent, Yes Temperature > 36 C and Yes Mental status appropriate
[2024-05-29] MEDS: OXYTOCIN PREMIX 30 UNIT/500 ML PLAST..BAG 200 UNIT IV (12:50)
--- NOTE | 2024-05-29 13:25 | P.HPOB_ITS ---
OB HPI Date/Time Date of admission: 05/29/24 Date Patient Seen: 05/29/24 Time Patient Seen: 08:45 History of Present Condition Chief complaint: IUP, 41+0 wks, early labor : 3 Para: 0 Estimated Date of Delivery: 06/21/24 Estimated Gestational Age (weeks): 41+0 Narrative: Isidra Howe is a 33 year old admitted in early active phase labor at 41+ 0 weeks gestational age. course is largely been uneventful with the appropriate milestones and solid dating. GBS is negative History of Present care: good care Dating criteria: LMP confirmed by 1st trimester US Ultrasounds: normal 1st trimester US and normal mid trimester US Obstetrical complications: none Medical complications: none Preadmission Labs Blood type: B (+) positive -: Antibody screen: negative, GBS status: negative, HBsAG: negative, HIV: negative and RPR/VDLR: negative -: Chlamydia screen: not detected and Gonorrhea screen: not detected -: Rubella: not immune and Varicella: immune HCT: 40.5 Narrative: Declined GDM screen, AFP/Quad screen testing Prior (ies) History: SAB x 2 Evaluation Evaluation Baseline heart rate: 125 Variability: Moderate (11-25) monitor accelerations: Present Monitor Decelerations: Absent Contraction Frequency (minutes): 5 Uterine Contraction Intensity: Moderate Category of Tracing: Reactive Status: Category l Dilation (cm): 5 Effacement (%): 90 Dilation: >/=5 cm Effacement: >/=80% station: +1 Position of cervix: mid Consistency: medium Butler score: 11 PFSH Medical History (Updated 05/28/24 @ 08:54 by Noe Bassett MD) Migraine Asthma (~1988) Anxiety (~2014) Chicken pox (~1996) Anemia (~2016) Ovarian cyst (~2019) GI bleeding (~2008) Depression Surgical History (Updated 09/29/23 @ 09:40 by Silva Cabrera RN) History of hand surgery Family History (Updated 09/29/23 @ 09:43 by Silva Cabrera, ROYCE) Grandfather Parkinson's disease Alcoholism Grandmother Breast cancer Grandfather Prostate cancer Alzheimers disease Grandmother Breast cancer Mother A-fib Uncle Colon cancer Alcoholism Aunt Breast cancer Social History marital status: unmarried,single number of children: 0 household members: friend(s) lives independently: Yes caregiver/support person: No housing: house pets and animals: Yes (cat) education level: college (associate's degree) occupational status: student 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 travel history: over 6 months ago seatbelt use: always water heater temp set < 120 deg: Yes working smoke detector in home: Yes fire extinguisher in home: No carbon monox detector in home: Yes firearms in home: No do you feel safe at home: Yes Smoking Status: Never smoker second hand exposure: No alcohol intake: former (occasionally when not ) substance use type: does not use well-balanced diet: rarely or never daily servings fruits/ve-1 caffeine: Yes (AM cup coffee) Type(s) of exercise: weight lifting and resistance training frequency: 1-2 times per week Meds Home Medications and Allergies Home Medications Medication Instructions Recorded Confirmed Type Lactobacillus rhamnosus GG 10 1 cap PO DAILY 09/29/23 05/21/24 History billion cell capsule (Culturelle) vitamin-ferrous sulfate tab PO 09/29/23 05/21/24 History 27 mg iron-folic acid 0.8 mg tablet albuterol sulfate 90 mcg/actuation 2 puff inhalation Q6H PRN 12/29/23 05/21/24 Rx aerosol inhaler shortness of breath or wheezing #6.7 grams Allergies Allergy/AdvReac Type Severity Reaction Status Date / Time No Known Drug Allergies Allergy Verified 05/28/24 08:22 Review of Systems Review of Systems Narrative: Problem-specific ROS positives included in HPI OB Exam Vital signs Blood Pressure: 142/63 Pulse Rate: 67 Temperature: 96.4 F HENMT Head: normal to inspection, normocephalic and atraumatic Eyes General: appearance normal, both eyes and all related structures Resp Effort & Inspection: normal respiratory effort and able to speak in complete sentences Auscultation: clear to auscultation bilaterally Cardio Rate: regular rate Rhythm: regular rhythm Heart Sounds: S1 normal, S2 normal and no murmurs Extremities Lower extremity: Yes normal to inspection GI Inspection: normal to inspection Palpation: Yes soft and Yes no hepatosplenomegaly Uterus Location (Fundal Height): 36 Estimated Weight (lbs): 7 Objective Labs 05/29/24 07:15 Labs: Laboratory Results - last 24 hr 05/29/24 07:15 WBC 11.2 H RBC 4.61 Hgb 13.7 Hct 40.5 MCV 88.0 MCH 29.6 MCHC 33.7 RDW 13.5 Plt Count 347 Neut % (Auto) 69.1 Lymph % (Auto) 19.4 L [place] % (Auto) 8.8 Eos % (Auto) 2.1 Baso % (Auto) 0.6 Neut # (Auto) 7800 H Lymph # (Auto) 2200 [place] # (Auto) 1000 H Eos # (Auto) 200 Baso # (Auto) 100 Blood Type B Positive Antibody Screen Negative Assessment and Plan Assessment and Plan Assessment and Plan narrative: ASSESSMENT 1. Intrauterine , 41+0 wks EGA 2. Advanced maternal age 3. GBS negative PLAN 1. Admit for labor and delivery 2. See admission orders Time-Based Coding :: [TOTAL MINUTES] spent with patient and on the chart (including review of chart, obtaining history, exam, reviewing outside data, placing orders, documenting exam and treatment plan, and counseling patient) on [DATE].
--- NOTE | 2024-05-29 13:25 | PM.OBPRVD ---
Labor & Delivery Delivery date: 05/29/24 Intrapartal Events: None Cervical ripening method: none Induction method: none Delivery augmentation: rupture of membranes Delivery monitor: external FHT and external uterine Route of delivery: Episiotomy description: None L&D Laceration Description: Perineal - 1st Degree and Labial (Bilateral, 1st degree) Delivery repair: chromic (3-0) Estimated blood loss (mL): 200 Anesthesia Type: Epidural Complications: None Narrative: Following a 1 hour and 24 minutes 2nd stage, the patient delivered spontaneously over an intact perineum a viable female infant with Apgars of 6/9, weight 3206 g (7 lb 1.1 oz). At delivery no cord entanglement or shoulder dystocia was encountered and the was vigorous. Immediate skin to skin contact I am initiated and d. once the umbilical cord was doubly clamped and cut, a specimen of cord blood was obtained for routine studies. The placenta was delivered with gentle cord traction and suprapubic countertraction. Inspection of the placenta showed it to be intact with a central insertion of three-vessel cord. Following delivery of the placenta, intravenous Pitocin was initiated immediately with prompt control of blood loss. Inspection of the perineum and vagina showed there to be several small superficial abrasions involving both labia as well as the midline of the introitus. These were closed with 3-0 catgut suture using running interlocking stitches and/or [id number] stitches as needed. At the completion of the case the uterus was firm, bleeding minimal, and both mother and baby tolerated the delivery process well. Sponge, instrument, and sharps counts were correct at the completion of the delivery process. Baby 1: gender: Female Presentation: vertex Position: Left Occiput Anterior Placenta delivery description: Spontaneous Cord Vessel Description: 3 Vessels score (1 min): 6 score (5 min): 9 weight: 7 lb 1.088 oz Plan for aftercare: Routine care
[2024-05-29] MEDS: ACETAMINOPHEN 325 MG TABLET 650 MG PO ×2 (15:55→22:00)
[2024-05-29] MEDS: IBUPROFEN 600 MG TABLET PO ×2 (15:55→22:01)
[2024-05-29 19:01] VITALS: BP 142/63; PULSE 67; TEMP 35.8
[2024-05-29] MEDS: LANOLIN OINT 7 GM 1 APPLIC TOP (22:00)
[2024-05-29] MEDS: DOCUSATE 100 MG CAPSULE PO (22:02)
[2024-05-29 23:00] VITALS: BP 110/61; PULSE 77; RESP 16; TEMP 37
[2024-05-30] MEDS: ACETAMINOPHEN 325 MG TABLET 650 MG PO ×2 (04:53→10:51)
[2024-05-30] MEDS: IBUPROFEN 600 MG TABLET PO ×2 (04:53→10:52)
[2024-05-30 06:38] LABS: Add Manual Diff / Slide Review NO; Basophils Absolute Auto 100 /uL (0-100); Basophils Percent Auto 0.5 % (0-2); Eosinophils Absolute Auto 100 /uL (0-450); Hematocrit 32.1 % (36-46); Hemoglobin 10.9 g/dL (12.0-16.0); Lymphocytes Absolute Auto 2000 /uL (1100-4500); Lymphocytes Percent Auto 16.8 % (25-40); Mean Corpuscular HGB Conc 34.1 % (30-36); Mean Corpuscular Hemoglobin 29.9 PG (26-34); Mean Corpuscular Volume 87.7 fL (80-100); Monocytes Absolute Auto 900 /uL (0-900); Monocytes Percent Auto 7.8 % (3-14); Neutrophils Absolute Auto 8700 /uL (1500-7000); Neutrophils Percent Auto 73.9 % (50-75); Platelet Count 235 X10^3/uL (150-400); Red Blood Cell Count 3.66 X10^6/uL (4.0-5.2); Red Cell Distribution Width 13.4 % (11.6-14.8); White Blood Cell Count 11.8 X10^3/uL (4.5-11.0)
[2024-05-30] MEDS: DOCUSATE 100 MG CAPSULE PO (09:13)
--- NOTE | 2024-05-30 13:06 | PM.OBDS.1 ---
Discharge Providers Provider Date of admission: 05/29/24 07:01 Discharge Date: 05/30/24 Primary care physician: Raji Smalls MD Consults: 05/29/24 07:25 Consult to Anesthesiology Urgent Comment: Consulting Provider: Noe Bassett Reason for consultation: Epidural Has provider been notified: No 05/30/24 13:23 Consult to Union Organizer Routine Comment: Discharge provider: Tracie Pittman MD Summary Hospital Course Date Patient Seen: 05/30/24 Time Patient Seen: 13:07 Diagnoses: 41 week gestation, spontaneous vaginal delivery Peripartum Data Infant Delivery Method: Natural Vaginal Laceration Description: Perineal - 1st Degree and Labial (Bilateral) complications: none 1: Gender: Female Disposition of : home Discharge Diagnosis (1) 41 weeks gestation of : Status: Acute (2) Vaginal delivery: Status: Acute Status at Discharge Cognitive/behavioral status at discharge: oriented Functional status at discharge: independent ambulation Overall status at discharge: patient is progressing back to baseline Time Spent with Patient Time attestation: Total time spent providing and/or coordinating discharge services: Time spent: Less than 30 minutes Objective Labs 05/30/24 06:22 Labs: Laboratory Results - last 24 hr 05/30/24 06:22 WBC 11.8 H RBC 3.66 L Hgb 10.9 L Hct 32.1 L MCV 87.7 MCH 29.9 MCHC 34.1 RDW 13.4 Plt Count 235 Neut % (Auto) 73.9 Lymph % (Auto) 16.8 L [place] % (Auto) 7.8 Eos % (Auto) 1.0 L Baso % (Auto) 0.5 Neut # (Auto) 8700 H Lymph # (Auto) 2000 [place] # (Auto) 900 Eos # (Auto) 100 Baso # (Auto) 100 Exam Vital Signs (past 8 hours): Blood pressure 99/62, pulse 66, temperature 37.1? Narrative Exam Narrative: Abdomen is soft, nontender. Uterus is firm, at U, nontender. Mild lochia. Extremities without edema and nontender. Discharge Plan Discharge Plan Patient Disposition: Home Discharge orders & Medications Prescriptions: Continued albuterol sulfate 90 mcg/actuation HFA aerosol inhaler 2 puff inhalation Q6H PRN (Reason: shortness of breath or wheezing) Qty: 6.7 3RF Culturelle 10 billion cell capsule 1 cap PO DAILY vit-ferrous sulfat-FA 27 mg iron- 0.8 mg tablet PO Follow up/Referrals: Raji Smalls MD [Primary Care Provider] - Noe Bassett MD [Physician] - 6 Weeks Diet/Activity/Treatments Diet: Regular Activity: Nothing in vagina for 6 weeks Skin/Wound/Dressing Care Report to your healthcare provider any signs of infection, such as:: chills, fever and increased pain Visit Report/Discharge Packet Stand Alone Forms: Patient Portal/API Discharge Data Primary Care Provider: Raji Smalls
== END 2024-05-30 14:05 | disposition home or self-care (01) | DRG 807 ==
PROVIDERS: Admitting Provider Obstetrics & Gynecology; PCP Family Medicine; Referring Provider Obstetrics & Gynecology; Visit Provider Obstetrics & Gynecology
DX: O48.0 Post-term pregnancy (principal); Z37.0 Single live birth; O70.0 First degree perineal laceration during delivery; Z3A.41 41 weeks gestation of pregnancy
CPT/HCPCS: 36415; 59050; 59400; 85025; 86850; 86900; 86901; G0379; J2590

== ENCOUNTER → 2024-11-21 16:32 | Outpatient (CLI) | payer OTHER, SELFPAY | LOC: LAB 16:33 | PROVIDERS: PCP Family Medicine; Referring Provider Family Medicine; Visit Provider Family Medicine | DX: Z11.7 Encounter for testing for latent tuberculosis infection (principal) | CPT/HCPCS: 36415; 86480 ==

== ENCOUNTER → 2025-07-02 14:45 | Outpatient (CLI) | payer OTHER, SELFPAY ==
[2025-07-02 15:21] LABS: Add Manual Diff / Slide Review NO; Hematocrit 37.7 % (36-46); Hemoglobin 12.8 g/dL (12.0-16.0); Lymphocytes Absolute Auto 2300 /uL (1100-4500); Mean Corpuscular HGB Conc 33.9 % (30-36); Mean Corpuscular Hemoglobin 29.4 PG (26-34); Mean Corpuscular Volume 86.6 fL (80-100); Platelet Count 315 X10^3/uL (150-400)
[2025-07-02 15:46] LABS: HEMOLYSIS < 15 (0-50); Iron 69 ug/dL (37-170)
[2025-07-02 15:48] LABS: Alanine Aminotransferase 19 IU/L (<35); Albumin 4.5 g/dL (3.5-5.0); Albumin Globulin Ratio 1.7 (1.0-2.8); Alkaline Phosphatase 69 U/L (38-126); Blood Urea Nitrogen 20 mg/dL (7-17); Calcium 9.3 mg/dL (8.4-10.2); Carbon Dioxide 27 mmol/L (22-32); Chloride 103 mmol/L (98-107); Cholesterol 175 mg/dL (140-199); Estimated Glomerular Filt Rate > 60 mL/min (>60); Globulin 2.7 g/dL (1.7-4.1); Glucose 80 mg/dL (70-99); HDL Cholesterol 60 mg/dL (40-60); HEMOLYSIS < 15 (0-50); Potassium 4.4 mmol/L (3.4-5.1); Sodium 139 mmol/L (137-145); Total Protein 7.2 g/dL (6.3-8.2); Triglycerides 67 mg/dL (35-150)
[2025-07-02 15:57] LABS: Percent Iron Saturation 21 % (15-50); Total Iron Binding Capacity 331 ug/dL (265-497); Transferrin 265 mg/dL (206-381)
[2025-07-02 16:17] LABS: TSH w/ Reflex to FT4 1.67 uIU/mL (0.47-4.68)
[2025-07-02 16:23] LABS: Ferritin 26 ng/mL (6-137)
[2025-07-03 22:36] LABS: QuantiFERON Mitogen Value >10.00 IU/mL (.); QuantiFERON Nil Value 0.05 IU/mL (.); QuantiFERON TB Gold Plus Positive (Negative); QuantiFERON TB1 Ag Value 0.21 IU/mL (.); QuantiFERON TB2 Ag Value 0.44 IU/mL (.)
== END ==
PROVIDERS: PCP Family Medicine; Referring Provider Family Medicine; Visit Provider Family Medicine
DX: Z00.00 Encounter for general adult medical examination without abnormal findings (principal); F41.9 Anxiety disorder, unspecified; F51.05 Insomnia due to other mental disorder; D64.9 Anemia, unspecified; N39.41 Urge incontinence
CPT/HCPCS: 36415; 80053; 80061; 82728; 83540; 83550; 84443; 85025; 86480

== ENCOUNTER 2025-09-11 14:54 | Emergency (ER) | payer OTHER, SELFPAY ==
[2025-09-11 15:24] VITALS: BP 103/61; PULSE 67; RESP 16; TEMP 36.9; O2SAT 100; BMI 18.8
--- NOTE | 2025-09-11 15:31 | ED_ITS ---
<Statement entered by Jann Pacheco, DO - 09/11/25 18:54> Co-sign statement: I was available for consultation during this patient's emergency department visit. This chart is being signed by myself for administrative purposes only. I do not have direct contact with this patient during this visit. They were seen independently by the APC. HPI - Recheck/Abnormal Lab/Rx General Chief Complaint: Recheck/Abnormal Lab/Rx Stated Complaint: needle stick injury Time Seen by Provider: 09/11/25 15:20 Source: patient Mode of arrival: Ambulatory History of Present Illness HPI narrative: Ms. Howe is a very pleasant 35-year-old female with no reported significant past medical history who presents to the emergency department for a needle stick exposure that occurred at work/School. Patient is a student at [employer]. She was trying to get a discarded vial of the sharps container and was stuck by a needle in her right ring finger. She washed her hands profusely immediately. She was told the needles were from a community vaccine clinic/COVID clinic that occurred 3 days ago. She no longer is able to identify the site of the needle exposure. She is up-to-date on all her vaccines including hepatitis-B and Tdap. Related Data Home Medications ?Medication ?Instructions ?Recorded ?Confirmed Lactobacillus rhamnosus GG 10 1 cap PO DAILY 09/29/23 08/12/25 billion cell capsule (Culturelle) sleepy head with melatonin 1 tab PO .HS PRN 02/10/25 08/12/25 Previous Rx's ?Medication ?Instructions ?Recorded albuterol sulfate 90 mcg/actuation 2 puff inhalation Q 6H PRN 06/06/25 aerosol inhaler shortness of breath or wheez ing #6.7 grams budesonide-formoterol HFA 80 2 puff inhalation BID PRN 08/01/25 mcg-4.5 mcg/actuation aerosol wheezing, shortness of b reath inhaler (Breyna) #10.2 grams Allergies Allergy/AdvReac Type Severity Reaction Status Date / Time No Known Drug Allergies Allergy Verified 08/12/25 14:03 Review of Systems Review of Systems ROS Unobtainable: All systems reviewed & are unremarkable except as noted in HPI and below Patient History Medical History (Updated 09/11/25 @ 16:07 by Starla Vizcarra PA-C) Insomnia secondary to anxiety Stress Migraine Asthma (~1988) Anxiety (~2014) Chicken pox (~1996) Anemia (~2016) Ovarian cyst (~2019) GI bleeding (~2008) Depression Surgical History (Updated 09/29/23 @ 09:40 by Silva Cabrera, RN) History of hand surgery Family History (Updated 09/29/23 @ 09:43 by Silva Cabrera RN) Grandfather Parkinson's disease Alcoholism Grandmother Breast cancer Grandfather Prostate cancer Alzheimers disease Grandmother Breast cancer Mother A-fib Uncle Colon cancer Alcoholism Aunt Breast cancer Social History marital status: unmarried,single number of children: 0 household members: friend(s) lives independently: Yes caregiver/support person: No housing: house pets and animals: Yes (cat) education level: college occupational status: student 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) special shelby needs: No travel history: over 6 months ago seatbelt use: always water heater temp set < 120 deg: Yes working smoke detector in home: Yes fire extinguisher in home: No carbon monox detector in home: Yes firearms in home: No do you feel safe at home: Yes Smoking Status: Never smoker second hand exposure: No alcohol intake: former substance use type: does not use well-balanced diet: rarely or never daily servings fruits/ve-1 caffeine: Yes (AM cup coffee) Type(s) of exercise: weight lifting and resistance training frequency: 1-2 times per week Smoking Status: Never smoker Exam Narrative Exam Narrative: GENERAL: 35 year old patient appears stated age. Well-developed patient, in no acute distress. HEAD: Atraumatic. Normocephalic. EYES: No scleral icterus. No injection or drainage. NECK: Trachea midline. Cervical ROM intact. CARDIOVASCULAR: Regular rate RESPIRATORY: ?Nonlabored respirations. ?Speaking in clear, full sentences. ? NEURO: AOx3. ?Clear speech. ?Moves all 4 extremities appropriately. SKIN: No visible needle stick puncture wound on bilateral hands, patient does have chronic dry skin of both hands. Patient reports needle stick was on right ring finger, finger is without wound, bleeding, erythema, swelling or other injury. Initial Vital Signs Initial Vital Signs: Vital Signs Temperature 98.4 F 09/11/25 15:24 Pulse Rate 67 09/11/25 15:24 Respiratory Rate 16 09/11/25 15:24 Blood Pressure 103/61 09/11/25 15:24 Pulse Oximetry 100 09/11/25 15:24 Oxygen Delivery Method Room Air 09/11/25 15:24 Course Orders Ordered: ED Orders 09/11/25 15:54 Alanine Aminotransferase Stat HIV 1 & 2 Ab/Ag 4th Gen Combo Stat Hep C Virus Ab w/Reflex Quant Stat Vital Signs Vital signs: Vital Signs - 8 hr 09/11/25 15:24 Temperature 98.4 F Pulse Rate 67 Respiratory Rate 16 Blood Pressure 103/61 Pulse Oximetry 100 Oxygen Delivery Method Room Air MDM - Recheck/Abnormal Lab/Rx Medical Records Attestation: I reviewed the patient's medical records. Lab Data Labs: Lab Results 09/11/25 Range/Units 15:54 ALT 21 (<35) IU/L Hepatitis C Antibody Negative (NEGATIVE) s/c HIV 1&2 Ab/P24 Ag 4thGn Negative (NEGATIVE) MDM Narrative Medical decision making narrative: 35-year-old female with no reported significant past medical history who presents to the emergency department for a needle stick exposure that occurred at work/School. She is up-to-date on all vaccines including Tdap and hep B, source is unknown. Differential diagnosis includes but is not limited to puncture wound, laceration, retained foreign body, blood borne pathogen exposure, etc. On exam patient is in no acute distress, nontoxic appearing, vital signs appropriate. She would accidental needle stick to the right finger from a vaccine needle used 3 days ago on an unknown patient. She is up-to-date on her vaccines. We will obtain baseline lab work today based on the hospital blood borne pathogen exposure order set. Discussed HIV post exposure prophylaxis with the patient, discussed low risk but no risk. At this time patient is not interested in HIV postop was prophylaxis, did discuss that this can be initiated within 72 hours however the sooner started the better. Stressed the importance of the patient following up with PCP/her college for further needle stick exposure labs, patient was made aware that labs today are only checking her baseline levels and she will need to have repeat labs. Patient verbalized understanding of all information agreeable with the plan. She is ambulatory and stable for discharge home. Discharge Plan Departure Patient Disposition: Home Clinical Impression: Needlestick injury accident Instructions: DI for Puncture Wound Activity Restrictions/Additional Instructions: Dear Ms. Howe, Thank you for coming to the emergency department. Today you were evaluated for an accidental needle stick injury. Your baseline HIV, hepatitis-B, hepatitis-C labs were drawn today. It is very important that you follow up with your school/work to have subsequent lab work drawn according to their needle stick/blood borne exposure protocols. Please return to the emergency department if develop any new or worsening symptoms or any concerns. Please follow up with your primary care doctor within the next 2-3 days for ER follow-up. (If you do not have a PCP you can call [phone]. ?to schedule an appointment with an [facility] Primary Care Provider) IF YOU DEVELOP ANY NEW OR WORSENING SYMPTOMS, RETURN TO THE ER! Please read the attached instructions, they highlight more specific treatments and interventions for you at home. Thank you for letting me participate in your care, Starla Vizcarra PA-C Prescriptions: No Action Culturelle 10 billion cell capsule 1 cap PO DAILY sleepy head with melatonin 1 tab PO .HS PRN albuterol sulfate 90 mcg/actuation HFA aerosol inhaler 2 puff inhalation Q6H PRN (Reason: shortness of breath or wheezing) Qty: 6.7 3RF budesonide-formoterol [Breyna] 80-4.5 mcg/actuation HFA aerosol inhaler 2 puff inhalation BID MDD 6 puffs PRN (Reason: wheezing, shortness of breath) Qty: 10.2 5RF Referrals: Raji Smalls MD [Primary Care Provider, Family Practice] Stand Alone Forms: Patient Portal/API
[2025-09-11 16:17] LABS: Alanine Aminotransferase 21 IU/L (<35)
[2025-09-11 17:07] LABS: HIV 1 & 2 Ab/Ag 4th Gen Combo NEGATIVE (NEGATIVE)
[2025-09-11 17:17] LABS: Hep C Virus Ab w/Reflex Quant NEGATIVE s/c (NEGATIVE)
[2025-09-13 02:10] LABS: Hepatitis B Surf Ab Qualitativ Reactive (.)
== END 2025-09-11 16:12 | disposition home or self-care (01) ==
PROVIDERS: Emergency Provider Physician Assistant; PCP Family Medicine
DX: Z77.21 Contact with and (suspected) exposure to potentially hazardous body fluids (principal)
CPT/HCPCS: 36415; 84460; 86706; 86803; 87389; 99283

== ENCOUNTER → 2025-10-22 10:38 | Outpatient (CLI) | payer OTHER, SELFPAY ==
[2025-10-23 14:47] LABS: HIV 1 & 2 Ab/Ag 4th Gen Combo NEGATIVE (NEGATIVE)
== END ==
PROVIDERS: PCP Family Medicine; Referring Provider Family Medicine; Visit Provider Family Medicine
DX: S61.234A Puncture wound without foreign body of right ring finger without damage to nail, initial encounter (principal)
CPT/HCPCS: 36415; 86707; 87389; 87522